=== PATIENT | female | born 1980 | race Caucasian/White ===

== ENCOUNTER 2016-07-26 15:53 | Emergency (ER) | payer MEDICAID ==
[~2016-07-26] VITALS: Ht 157.5 cm; Wt 78.5 kg
[2016-07-26 18:49] LABS: PLATELET COUNT 232 x10^3mcL (130-400)
[2016-07-26 18:50] LABS: RED CELL DISTRIBUTION WIDTH 21.5 % (11.5-14.5)
[2016-07-26 19:13] LABS: CALCIUM 8.4 mg/dL (8.5-10.1); CARBON DIOXIDE 26.4 mmol/L (21-32); CHLORIDE SERUM 106 mmol/L (98-107); CREATININE SERUM 0.7 mg/dL (0.6-1.0); GFR1 > 60 mL/min; GLUCOSE SERUM 101 mg/dL (74-106); POTASSIUM SERUM 3.6 mmol/L (3.5-5.1); SODIUM SERUM 140 mmol/L (136-145)
[2016-07-26 19:18] LABS: ALBUMIN 3.4 g/dL (3.4-5.0); ALKALINE PHOSPHATASE 67 U/L (46-116); ALT/SGPT 26 U/L (14-59); AST/SGOT 18 U/L (15-37); BILIRUBIN TOTAL 0.24 mg/dL (0.20-1.00); TOTAL PROTEIN, SERUM 7.2 g/dL (6.4-8.2)
[2016-07-26 20:02] LABS: BAND NEUTROPHIL 1 % (0-10); BASOPHIL 0 % (0-2); MONOCYTE 5 % (0-7); SEGMENTED NEUTROPHILS 75 % (37-75)
[2016-07-26 20:03] LABS: PLATELET MORPHOLOGY PLATELETS NORMAL; ovalocyte/elliptocyte 1+; rbc morphology (normal/abnorm) ABNORMAL (NORMAL)
[2016-07-27 03:30] VITALS: BP 128/77
== END 2016-07-27 03:30 | disposition home or self-care (01) ==
LOC: ED 15:53
PROVIDERS: Emergency Medicine
DX: N93.9 Abnormal uterine and vaginal bleeding, unspecified (principal); D64.9 Anemia, unspecified; I10 Essential (primary) hypertension
CPT/HCPCS: 83880; 85060; J1885; J2060; J7040; P9016; Q0092

== ENCOUNTER 2016-08-25 23:05 | Emergency (ER) | payer MEDICAID ==
[2016-08-26 01:15] LABS: BASOPHIL % 0.2 % (0-2); PLATELET COUNT 295 x10^3mcL (130-400)
[2016-08-26 01:17] LABS: RED CELL DISTRIBUTION WIDTH 29.7 % (11.5-14.5)
[2016-08-26 01:20] LABS: CALCIUM 8.8 mg/dL (8.5-10.1); CARBON DIOXIDE 24.5 mmol/L (21-32); CHLORIDE SERUM 105 mmol/L (98-107); CREATININE SERUM 0.7 mg/dL (0.6-1.0); GFR1 > 60 mL/min; GLUCOSE SERUM 97 mg/dL (74-106); POTASSIUM SERUM 3.9 mmol/L (3.5-5.1); SODIUM SERUM 138 mmol/L (136-145)
[2016-08-26 01:27] LABS: ALBUMIN 3.6 g/dL (3.4-5.0); ALKALINE PHOSPHATASE 67 U/L (46-116); ALT/SGPT 26 U/L (14-59); AST/SGOT 20 U/L (15-37); BILIRUBIN TOTAL 0.19 mg/dL (0.20-1.00); TOTAL PROTEIN, SERUM 7.9 g/dL (6.4-8.2)
[2016-08-26 02:50] VITALS: BP 146/79
== END 2016-08-26 02:50 | disposition home or self-care (01) ==
LOC: ED 23:05
PROVIDERS: Emergency Medicine
DX: N93.8 Other specified abnormal uterine and vaginal bleeding (principal); I10 Essential (primary) hypertension

== ENCOUNTER 2016-12-11 11:42 | Emergency (ER) | payer OTHER ==
[2016-12-11 14:26] LABS: CALCIUM 8.6 mg/dL (8.5-10.1); CARBON DIOXIDE 23.3 mmol/L (21-32); CHLORIDE SERUM 109 mmol/L (98-107); CREATININE SERUM 0.7 mg/dL (0.6-1.0); GFR1 > 60 mL/min; GLUCOSE SERUM 120 mg/dL (74-106); POTASSIUM SERUM 3.4 mmol/L (3.5-5.1); SODIUM SERUM 140 mmol/L (136-145)
[2016-12-11 14:28] LABS: BASOPHIL % 0.5 % (0-2); PLATELET COUNT 232 x10^3mcL (130-400)
[2016-12-11 14:31] LABS: ALBUMIN 3.3 g/dL (3.4-5.0); ALKALINE PHOSPHATASE 69 U/L (46-116); ALT/SGPT 87 U/L (14-59); AST/SGOT 40 U/L (15-37); BILIRUBIN TOTAL 0.2 mg/dL (0.20-1.00); TOTAL PROTEIN, SERUM 7.2 g/dL (6.4-8.2)
[2016-12-11 15:16] LABS: RED CELL DISTRIBUTION WIDTH 14.6 % (11.5-14.5)
[2016-12-11 16:10] LABS: UA SPECIFIC GRAVITY <=1.005 (1.005-1.035); microscopic required? YES; urine erythrocyte 3+ (NEGATIVE)
[2016-12-11 16:13] VITALS: BP 145/90
== END 2016-12-11 13:13 | disposition home or self-care (01) ==
LOC: ED 11:42
PROVIDERS: Specialist
DX: N93.8 Other specified abnormal uterine and vaginal bleeding (principal); D64.9 Anemia, unspecified; I10 Essential (primary) hypertension; Z79.1 Long term (current) use of non-steroidal anti-inflammatories (NSAID)
CPT/HCPCS: J1885

== ENCOUNTER 2017-11-01 12:52 | Emergency (ER) | payer OTHER ==
[~2017-11-01] VITALS: Ht 160 cm; Wt 83.5 kg
[2017-11-01 14:00] LABS: BASOPHIL % 0.5 % (0-2); PLATELET COUNT 329 x10^3mcL (130-400)
[2017-11-01 14:21] LABS: rbc morphology (normal/abnorm) ABNORMAL (NORMAL)
[2017-11-01 14:30] LABS: CALCIUM 8.5 mg/dL (8.5-10.1); CHLORIDE SERUM 107 mmol/L (98-107); CREATININE SERUM 0.7 mg/dL (0.6-1.0); GFR1 > 60 mL/min; GLUCOSE SERUM 99 mg/dL (74-106); POTASSIUM SERUM 3.9 mmol/L (3.5-5.1); SODIUM SERUM 138 mmol/L (136-145)
[2017-11-01 14:35] LABS: ALKALINE PHOSPHATASE 76 U/L (46-116); ALT/SGPT 32 U/L (14-59); AST/SGOT 18 U/L (15-37); BILIRUBIN TOTAL 0.2 mg/dL (0.20-1.00); TOTAL PROTEIN, SERUM 7.3 g/dL (6.4-8.2)
[2017-11-01 14:41] LABS: ALBUMIN 3.1 g/dL (3.4-5.0)
[2017-11-01 15:32] VITALS: BP 131/61
== END 2017-11-01 15:32 | disposition home or self-care (01) ==
LOC: ED 12:52
PROVIDERS: Specialist
DX: N93.8 Other specified abnormal uterine and vaginal bleeding (principal); D53.9 Nutritional anemia, unspecified; R42 Dizziness and giddiness; I10 Essential (primary) hypertension
CPT/HCPCS: 36415; J7030; Q0092